=== PATIENT | male | born 1945 | race Two or more races ===

== ENCOUNTER 2021-02-08 14:44 | Outpatient (REF) | payer OTHER, MEDICAID, SELFPAY ==
--- NOTE | 2021-02-14 09:14 | MHC.AU.HFU ---
Hearing Instrument Follow-Up- Binaural Date of Visit: 02/08/21 [employer] Used: Son assisted with Tamazight interpretation Right Ear: Manager Business Intelligence: Phonak Model: Alexandra M70-SP Serial Number: [id number] Repair Warranty: 08/01/2023 Loss and Damage Warranty: 08/01/2023 Battery Size: 13 Color: Champagne Type of Mold: Clif Shell High Strength Silicone 60 [address] #[id number] Warranty 08/09/2020 Type of Wax Guard: Dispensed By: [facility] Date of Fittin05/23/2020 Left Ear: Manager Business Intelligence: Phonak Model: Alexandra M70-SP Serial Number: [id number] Repair Warranty: 08/01/2023 Loss and Damage Warranty: 08/01/2023 Battery Size: 13 Color: Champagne Type of Mold: Clif Shell High Strength Silicone 60 [address] #[id number] Warranty 08/09/2020 Type of Wax Guard: Dispensed By: [facility] Date of Fittin05/23/2020 Follow-Up Summary: Patient arrived for hearing aid check. He has been reporting significant discomfort from the left mold. Gaps were noted around the mold. Patient's son reports the patient may have lost weight since the original fitting. The tubing has also been coming out of the molds when removing the hearing aids. Hearing aid maintenance performed. Vacuumed microphones. Cleaned battery compartments. Cleaned molds and replaced tubing w/Invisilock tubing to help hold in place. Otoscopy revealed mostly occluding cerumen deep in the ears. Patient is on blood thinners; therefore, the cerumen could not be removed in office today. It is best that the cerumen removal be performed by a medical practitioner in case of complications, such as bleeding. Patient's son reported they would call the PCP today to schedule an appointment. The cerumen was deep enough that it did not get in the way of impressions. Impressions were taken bilaterally for new molds without incident. Recommendations: Recommendations: After the appointment, looking into the patient's EMR revealed that he has [employer] insurance. Our clinic does not accept [employer] for hearing aid service at this time. Patient's family will be contacted to inform them. It is suggested that they call [employer] to inquire about participating providers. We will hold onto the impressions for 2 weeks in case they would like to crab picker the impressions to take to a new provider, or if they would like to order a pair of molds by self-pay. Diagnosis Code(s): Primary Diagnosis: H90.3 Bilateral Sensorineural Hearing Loss Signature: Provider: Silvia Crowley, CCC-A
== END 2021-02-08 14:45 | disposition home or self-care (01) ==
LOC: HO.HAP 14:44
PROVIDERS: Visit Provider Plastic Surgery
DX: Z13.89 Encounter for screening for other disorder (principal)

== ENCOUNTER 2022-06-16 14:07 | Outpatient (REF) | payer OTHER, MEDICAID, SELFPAY ==
[2022-06-16 15:57] LABS: Erythrocyte Sedimentation Rate 48 MM/HR (0-15); Thyroid Stimulating Hormone 1.42 uIU/mL (0.32-4.0)
[2022-06-24 17:51] LABS: Acetylcholine Receptor Binding <0.30 nmol/L
[2022-07-12 18:06] LABS: Acetylcholine Recep Modulating 22
== END 2022-06-16 14:08 | disposition home or self-care (01) ==
LOC: HO.LAB 14:07
PROVIDERS: PCP Internal Medicine; Visit Provider Psychiatry & Neurology Neurology
DX: G45.9 Transient cerebral ischemic attack, unspecified (principal)
CPT/HCPCS: 36415; 82550; 83519; 84443; 85652